=== PATIENT | female | born 1935 | race Caucasian/White ===

== ENCOUNTER 2016-12-02 10:34 | Observation (INO) | payer OTHER ==
[~2016-12-02] VITALS: Ht 162.6 cm; Wt 53.0 kg
[~2016-12-02 10:34] MED LIST: ALBU1AER9 INH; ASPI-435 PO; ATV5X PO; BIOT1CAP8 PO; CLX/20 PO; DOCU-94 PO; FEXO3TAB PO; FLNIN NAE; LSN25 PO; MONT1TAB3 PO; MULT-360 PO; OMEP20CA9 PO; OXGN; POLY335025 PO; PROBCAP PO; SALI1SPR3 INH; SIMV-150 PO; TIOTCAP INH; [UNRECOGNIZED DRUG - CODE] INH
[2016-12-02] MEDS ORDERED: FLUT1INH PO (11:07)
[2016-12-02] MEDS ORDERED: SPRIN/30 INH (11:08)
[2016-12-02] MEDS ORDERED: LEVO25TA5 PO (11:08)
[2016-12-02] MEDS ORDERED: SODIUM CHLORIDE 0.9% 1000ML 1,000 ML IV STA ×2 (11:11→18:26)
[2016-12-02] MEDS ORDERED: ONDANSETRON INJ 2 MG/ML 2 ML VIAL IV STA ×2 (11:11→12:23)
[2016-12-02] MEDS ORDERED: SIMV10TA2 PO (11:13)
[2016-12-02] MEDS ORDERED: ALBUT/IPRATROP 3MG/0.5MG NEB 3 ML VIAL INH ONE (11:15)
--- NOTE | 2016-12-02 11:24 | EMERGENCY ROOM VISIT NOTE ---
History Report prepared by Fabrice: Bob Franklin Under the Supervision of: Dr. Dilip Rinaldi M.D. First contact with patient: 11:08 Chief Complaint: DIZZY Stated Complaint: DIZZY History of Present Illness The patient is a 80 year old female who presents to the Emergency Room with complaints of constant dizziness starting this morning, and she states that she has been losing her balance. The patient additionally states that she is very nauseous, and the dizziness is worse while laying down. The patient denies any chest pain, vomiting, cough, congestion, fevers, or chills, though she states that she was sweating. The patient states that she has been laying in bed a lot recently, though yesterday she was somewhat active. The patient additionally notes that he has COPD, and she has had diverticulitis in the past. Source of History: patient Onset: this morning Position: other (global) Quality: other (dizziness) Timing: constant Modifying Factors (Worsening): other (laying down) Associated Symptoms: + nausea, No fevers, No chills, No cough, No chest pain , No vomiting Review of Systems See HPI for pertinent positives and negatives. A total of ten systems were reviewed and were otherwise negative. Past Medical & Surgical Medical Problems: (1) Calculus of kidney and ureter (2) Chronic obstructive lung disease (3) Diverticulitis (4) Laceration (5) Nasal bone fracture Social History Smoking Status: Current Every Day Smoker Alcohol Use: none Drug Use: none Marital Status: Housing Status: lives with significant other Current/Historical Medications Scheduled Aspirin (Aspirin 81), 1 TAB PO QAM Biotin (Biotin), 1 PO QAM Citalopram (Citalopram Hydrobromide), 20 MG PO QPM Docusate Sodium (Colace), 2 CAP PO HS Fexofenadine HCl (Mucinex Allergy), 1 TAB PO BID Fluticasone Furoate-Vilanterol (Breo Ellipta), 1 PUFF PO DAILY Home O2 Therapy (Oxygen), 2 LITERS NA HS Levothyroxine Sodium (Levothyroxine Sodium), 1 TAB PO DAILY Lisinopril (Lisinopril), 2.5 MG PO QAM Lorazepam (Lorazepam), 0.5 MG PO HS Multiple Minerals W/ Vitamins (Calcium Citrate +), 250 MG PO BID Polyethylene Glycol 3350 (Miralax), 1 DOSE PO DAILY Probiotic Product ([employer]), 1 CAPSULES PO QAM Simvastatin (Zocor), 1 TAB PO DAILY Tiotropium [place] (Spiriva Handihaler), 1 CAP INH DAILY Scheduled PRN Saline (Saline Nasal [place]), 2 SPRAYS INH Q4 PRN for to keep sinuses clear Allergies Coded Allergies: Sulfa Drugs (Verified Allergy, Mild, 12/02/16) Physical Exam Vital Signs Date Time Temp Pulse Resp B/P (MAP) Pulse Ox O2 Delivery O2 Flow Rate FiO2 12/02/16 18:39 59 22 104/63 96 Room Air 12/02/16 17:10 91 91 12/02/16 17:09 99/61 12/02/16 15:35 114/60 12/02/16 15:34 98 19 96 12/02/16 15:19 98 18 94 12/02/16 15:04 99 18 99 12/02/16 14:49 101 19 99 12/02/16 14:34 103 22 99 12/02/16 14:19 107 23 99 12/02/16 14:09 105 20 118/62 98 Nasal Cannula 2.0 12/02/16 14:05 118/62 12/02/16 14:04 106 25 98 12/02/16 14:03 98 Nasal Cannula 2.0 12/02/16 14:03 85 Nasal Cannula 12/02/16 13:34 100 26 100 12/02/16 13:29 98 12/02/16 13:19 88 18 100 12/02/16 13:04 82 18 100 12/02/16 12:49 75 19 100 12/02/16 12:39 141/83 12/02/16 12:39 71 22 141/83 100 Nebulizer 10.0 12/02/16 12:34 70 22 12/02/16 12:25 74 18 91 Room Air 12/02/16 12:19 72 20 12/02/16 12:04 75 23 12/02/16 11:47 94 Room Air 12/02/16 11:34 78 23 12/02/16 11:19 76 35 12/02/16 11:15 73 12/02/16 10:39 36.4 73 18 133/80 98 Room Air Physical Exam GENERAL: Awake, alert, cachectic-appearing, fatigued, in no distress HENT: Dy mucous membranes. Normocephalic, atraumatic. Oropharynx unremarkable. EYES: Normal conjunctiva. Sclera non-icteric. NECK: Supple. No nuchal rigidity. FROM. No JVD. RESPIRATORY: Diminished breath sounds throughout. CARDIAC: Regular rate, normal rhythm. Extremities warm and well perfused. Pulses equal. ABDOMEN: Soft, non-distended. No tenderness to palpation. No rebound or guarding. No masses. RECTAL: Deferred. MUSCULOSKELETAL: Chest examination reveals no tenderness. The back is symmetrical on inspection without obvious abnormality. There is no CVA tenderness to palpation. No joint edema. LOWER EXTREMITIES: Calves are equal size bilaterally and non-tender. No edema. No discoloration. NEURO: No nystagmus. Normal sensorium. No sensory or motor deficits noted. SKIN: No rash or jaundice noted. Medical Decision & Procedures ER Provider Diagnostic Interpretation: Radiology results as stated below per my review and radiologist interpretation: CT HEAD WITHOUT CONTRAST (CT) CLINICAL HISTORY: dizziness COMPARISON STUDY: 11/21/2014 TECHNIQUE: Axial CT of the brain is performed from the vertex to the skull base. IV contrast was not administered for this examination. A dose lowering technique was utilized adhering to the principles of ALARA. CT DOSE: 614.27 mGy.cm FINDINGS: No intra or extra-axial mass lesions are visualized. There is no CT evidence of acute cortical infarction. There is no evidence of midline shift. There is no acute hemorrhage. No calvarial fractures are visualized. There are patchy white matter hypodensities likely on a small vessel basis. There is no evidence of pathologic ventricular dilatation. There is no evidence of acute sinusitis IMPRESSION: No acute intracranial findings Electronically signed by: Nathan Barroso M.D. 12/02/2016 12:00 PM Dictated Date/Time: 12/02/2016 11:58 AM CHEST ONE VIEW PORTABLE CLINICAL HISTORY: Atypical chest pain COMPARISON STUDY: 09/26/2015 FINDINGS: The heart is normal in size. The patient remains hyperinflated. Underlying emphysema is suspected. There is minor blunting of the lateral costophrenic angles.[ There is no focal pulmonary consolidation IMPRESSION: Emphysema. No evidence of focal pulmonary consolidation Electronically signed by: Nathan Barroso M.D. 12/02/2016 11:49 AM Dictated Date/Time: 12/02/2016 11:49 AM BRAIN WITHOUT CONTRAST HISTORY: 80 years-old Female acute vertigo and dizziness with concern for acute stroke. COMPARISON: CT head of same day TECHNIQUE: Multiplanar multisequence MRI of the brain was obtained without contrast. FINDINGS: The large inrxh-df-nppl field clinical engineer images demonstrate no gross abnormality. There is no restricted diffusion to suggest acute infarction. The midline structures including the corpus callosum, brainstem, optic chiasm, pituitary and pineal gland are unremarkable. There is no cerebellar tonsillar herniation. 2 mm anterolisthesis of C2 on C3 is likely on a degenerative basis secondary to underlying severe facet arthropathy. There is facet bony fusion on the right at this level. Multilevel uncovertebral spurring and intervertebral disc space narrowing is present along with facet arthrosis. There is moderate cerebral atrophy with ex vacuo ventriculomegaly. Moderate to extensive degree of patchy and confluent T2 prolongation involves the subcortical, deep and periventricular white matter of the cerebral hemispheres bilaterally compatible with chronic microvascular ischemic changes. No acute intracranial hemorrhage, midline shift, intracranial mass or abnormal extra-axial collections. Major flow voids at the level of the skull base appear patent. Orbits are symmetric. Mastoid air cells are clear. There is minimal ethmoid sinus disease. IMPRESSION: 1. No acute intracranial abnormality. Negative for hemorrhage or acute infarction. 2. Background atrophy with moderate to extensive chronic microvascular ischemic changes. The above report was generated using voice recognition software. It may contain grammatical, syntax or spelling errors. Electronically signed by: Giovanni Dumont M.D. 12/02/2016 4:42 PM Dictated Date/Time: 12/02/2016 4:38 PM Laboratory Results 12/02/16 11:26 Red Blood Count 4.99, Mean Corpuscular Volume 93.4, Mean Corpuscular Hemoglobin 29.3, Mean Corpuscular Hemoglobin Concent 31.3, Mean Platelet Volume 9.9, Neutrophils (%) (Auto) 83.0, Lymphocytes (%) (Auto) 10.8, Monocytes (%) (Auto) 4.3, Eosinophils (%) (Auto) 1.1, Basophils (%) (Auto) 0.6, Neutrophils # (Auto) 5.23, Lymphocytes # (Auto) 0.68, Monocytes # (Auto) 0.27, Eosinophils # (Auto) 0.07, Basophils # (Auto) 0.04 12/02/16 11:26 Test 8/31/17 11:26 12/02/16 11:32 12/02/16 14:00 White Blood Count 6.30 K/uL (4.8-10.8) Red Blood Count 4.99 M/uL (4.2-5.4) Hemoglobin 14.6 g/dL (12.0-16.0) Hematocrit 46.6 % (37-47) Mean Corpuscular Volume 93.4 fL (80-100) Mean Corpuscular Hemoglobin 29.3 pg (25-34) Mean Corpuscular Hemoglobin Concent 31.3 g/dl (32-36) Platelet Count 153 K/uL (130-400) Mean Platelet Volume 9.9 fL (7.4-10.4) Neutrophils (%) (Auto) 83.0 % Lymphocytes (%) (Auto) 10.8 % Monocytes (%) (Auto) 4.3 % Eosinophils (%) (Auto) 1.1 % Basophils (%) (Auto) 0.6 % Neutrophils # (Auto) 5.23 K/uL (1.4-6.5) Lymphocytes # (Auto) 0.68 K/uL (1.2-3.4) Monocytes # (Auto) 0.27 K/uL (0.11-0.59) Eosinophils # (Auto) 0.07 K/uL (0-0.5) Basophils # (Auto) 0.04 K/uL (0-0.2) RDW Standard Deviation 48.1 fL (36.4-46.3) RDW Coefficient of Variation 14.1 % (11.5-14.5) Immature Granulocyte % (Auto) 0.2 % Immature Granulocyte # (Auto) 0.01 K/uL (0.00-0.02) Anion Gap 6.0 mmol/L (3-11) Estimated GFR () 75.0 Estimated GFR (Non- 64.7 BUN/Creatinine Ratio 13.5 (10-20) Calcium Level 8.7 mg/dl (8.5-10.1) Total Bilirubin 1.0 mg/dl (0.2-1) Direct Bilirubin 0.2 mg/dl (0-0.2) Aspartate Amino Transf (AST/SGOT) 10 U/L (15-37) Alanine Aminotransferase (ALT/SGPT) 12 U/L (12-78) Alkaline Phosphatase 61 U/L (45-117) Troponin I < 0.015 ng/ml (0-0.045) Total Protein 6.4 gm/dl (6.4-8.2) Albumin 3.5 gm/dl (3.4-5.0) Lipase 99 U/L (73-393) Venous Blood pH 7.40 (7.36-7.41) Venous Blood Partial Pressure CO2 45 mmHg (38.0-50.0) Venous Blood Partial Pressure O2 42 mmHg Venous Blood HCO3 27 mmol/L Venous Blood Oxygen Saturation 77.0 % Venous Blood Base Excess 2.0 mEq/L Urine Color YELLOW Urine Appearance CLEAR (CLEAR) Urine pH 7.0 (4.5-7.5) Urine Specific [place] 1.015 (1.000-1.030) Urine Protein NEG (NEG) Urine Glucose (UA) NEG (NEG) Urine Ketones TRACE (NEG) Urine Occult Blood NEG (NEG) Urine Nitrite NEG (NEG) Urine Bilirubin NEG (NEG) Urine Urobilinogen NEG (NEG) Urine Leukocyte Esterase NEG (NEG) Laboratory results reviewed by me Medications Administered Medications (Trade) Dose Ordered Sig/Codey Route Start Time Stop Time Status Last Admin Dose Admin Ondansetron HCl (Zofran Inj) 4 mg NOW STAT IV 12/02/16 11:11 12/02/16 11:18 DC 12/02/16 11:45 4 MG Sodium Chloride 1,000 ml @ 999 mls/hr Q1H1M STAT IV 12/02/16 11:11 12/02/16 12:11 DC 12/02/16 11:44 999 MLS/HR Albuterol/ Ipratropium (Duoneb) 12 ml ONE ONCE INH 12/02/16 11:15 12/02/16 11:18 DC 12/02/16 12:21 12 ML Ondansetron HCl (Zofran Inj) 4 mg NOW STAT IV 12/02/16 12:23 12/02/16 12:26 DC 12/02/16 12:50 4 MG Metoclopramide HCl (Reglan Inj) 10 mg NOW STAT IV 12/02/16 13:41 12/02/16 13:42 DC 12/02/16 14:07 10 MG Diphenhydramine HCl (Benadryl Inj) 25 mg NOW STAT IV 12/02/16 13:41 12/02/16 13:42 DC 12/02/16 14:07 25 MG Famotidine (Pepcid 20mg/100 ml) 20 mg ONE STAT IV 12/02/16 13:42 12/02/16 13:43 DC 12/02/16 14:08 20 MG Meclizine HCl (Antivert Tab) 25 mg NOW STAT PO 12/02/16 18:26 12/02/16 18:30 DC 12/02/16 18:39 25 MG Sodium Chloride 1,000 ml @ 999 mls/hr Q1H1M STAT IV 12/02/16 18:26 12/02/16 19:26 12/02/16 18:38 999 MLS/HR ECG Indication: other (dizziness) Rate (beats per minute): 71 Rhythm: normal sinus Findings: no acute ischemic change, other (Normal axis) ED Course 1108: The patient was evaluated in room C9. A complete history and physical exam was performed. 1111: Sodium Chloride 1000 ml @ 999 mls/hr IV, Zofran Inj 4mg IV 1115: DuoNeb 12ml INH 1223: Zofran Inj 4mg IV 1332: I reevaluated the patient, and she was feeling well. 1341: Benadryl Inj 25mg IV, Reglan Inj 10mg IV 1342: Pepcid 20mg/100ml 20mg IV 1649: I reevaluated the patient, and she states that she is feeling a little better, and she wants to try to eat. She still feels like she can't walk 1801: The patient is eating, and she is tolerating it well. 1840: I discussed the patient's case with DENITA Gallegos, and she is going to evaluate the patient for further treatment. Medical Decision I reviewed the patient's past medical history, medications, and the nursing notes as described above. The patient's presentation and history were concerning for peripheral vertigo vs. central vertigo vs. pneumonia, COPD exacerbation, bronchitis, dehydration, electrolyte abnormality, and UTI. Patient is an 80-year-old woman with a past medical history of eye protection and COPD presents emergency Department with vague complaints of fatigue, difficulty with balance but not dizzy, and nausea per history of present illness. On exam patient is in no acute distress, afebrile, stable vital signs. Appears clinically dry. On exam the patient has no nystagmus and is neurologically intact with normal finger to nose. However, when the patient is sat up the patient reports an unsteadiness. EKG unremarkable. Troponin negative in the setting of greater than 6 hours of constant symptoms. Chest x- ray negative. Labs including LFTs unremarkable and abdominal exam is benign. UA negative. Patient given IV fluids and Zofran with some improvement in her symptoms however still reporting unsteadiness. Suturing this MRI of the brain was done to rule out central etiology which was negative for stroke. Patient given additional IV fluids Reglan, Benadryl resolution of her nausea and able tolerate by mouth without difficulty. However when attempted to ambulate patient still reporting difficulty requiring one assist. This patient will be admitted for additional IV fluids, monitoring for her ataxia, and likely PT eval if not improved. Case was discussed with the medicine team will admit the patient to medicine service. Medication Reconcilliation Current Medication List: was personally reviewed by me Blood Pressure Screening Patient's blood pressure: Normal blood pressure Consults Time Called: 1827 Consulting Physician: DENITA Gallegos Returned Call: [phone] I discussed the patient's case with DENITA Gallegos, and she is going to evaluate the patient for further treatment. Impression Primary Impression: Dehydration Additional Impressions: Dizziness Ataxia Scribe Attestation The scribe's documentation has been prepared under my direction and personally reviewed by me in its entirety. I confirm that the note above accurately reflects all work, treatment, procedures, and medical decision making performed by me. Departure Information Dispostion Being Evaluated By Hospitalist Dakota Galindo M.D. (PCP) Patient Instructions My [facility] Problem Qualifiers
[2016-12-02 11:51] LABS: BASO % 0.6 %; BASO ABS # 0.04 K/uL (0-0.2); COMPLETE YES; EOS % 1.1 %; HEMATOCRIT 46.6 % (37-47); IG% 0.2 %; LYMPH % 10.8 %; LYMPH ABS # 0.68 K/uL (1.2-3.4); MEAN CELL VOLUME 93.4 fL (80-100); MEAN CORPUSCULAR HEMOGLOBIN 29.3 pg (25-34); MEAN CORPUSCULAR HGB CONC 31.3 g/dl (32-36); MEAN PLATELET VOLUME 9.9 fL (7.4-10.4); MONO % 4.3 %; PLATELET COUNT 153 K/uL (130-400); RED BLOOD COUNT 4.99 M/uL (4.2-5.4)
--- NOTE | 2016-12-02 11:51 | DIAGNOSTIC IMAGING REPORT ---
CHEST ONE VIEW PORTABLE CLINICAL HISTORY: Atypical chest pain COMPARISON STUDY: 09/26/2015 FINDINGS: The heart is normal in size. The patient remains hyperinflated. Underlying emphysema is suspected. There is minor blunting of the lateral costophrenic angles.[ There is no focal pulmonary consolidation IMPRESSION: Emphysema. No evidence of focal pulmonary consolidation Electronically signed by: Nathan Barroso M.D. 12/02/2016 11:49 AM Dictated Date/Time: 12/02/2016 11:49 AM
--- NOTE | 2016-12-02 12:01 | DIAGNOSTIC IMAGING REPORT ---
CT HEAD WITHOUT CONTRAST (CT) CLINICAL HISTORY: dizziness COMPARISON STUDY: 11/21/2014 TECHNIQUE: Axial CT of the brain is performed from the vertex to the skull base. IV contrast was not administered for this examination. A dose lowering technique was utilized adhering to the principles of ALARA. CT DOSE: 614.27 mGy.cm FINDINGS: No intra or extra-axial mass lesions are visualized. There is no CT evidence of acute cortical infarction. There is no evidence of midline shift. There is no acute hemorrhage. No calvarial fractures are visualized. There are patchy white matter hypodensities likely on a small vessel basis. There is no evidence of pathologic ventricular dilatation. There is no evidence of acute sinusitis IMPRESSION: No acute intracranial findings Electronically signed by: Nathan Barroso M.D. 12/02/2016 12:00 PM Dictated Date/Time: 12/02/2016 11:58 AM
[2016-12-02 12:16] LABS: ALT/SGPT 12 U/L (12-78); AST/SGOT 10 U/L (15-37); BLOOD UREA NITROGEN 11 mg/dl (7-18); BUN/CREATININE RATIO 13.5 (10-20); CALCIUM 8.7 mg/dl (8.5-10.1); CARBON DIOXIDE 28 mmol/L (21-32); CHLORIDE 103 mmol/L (98-107); CREATININE 0.85 mg/dl (0.60-1.20); GLUCOSE 100 mg/dl (70-99); POTASSIUM 4.1 mmol/L (3.5-5.1); SODIUM 137 mmol/L (136-145)
[2016-12-02 12:21] LABS: ALKALINE PHOSPHATASE 61 U/L (45-117)
[2016-12-02 12:25] VITALS: PULSE 74; O2SAT 91
[2016-12-02] MEDS ORDERED: DiphenhydrAMINE HCL 50 MG/ML VIAL IV STA (13:41)
[2016-12-02] MEDS ORDERED: METOCLOPRAMIDE HCL INJ 5 MG/ML 2 ML VIAL IV STA (13:41)
[2016-12-02] MEDS ORDERED: FAMOTIDINE 20MG/102 ML D5W IV STA (13:42)
[2016-12-02 14:21] LABS: URINE APPEARANCE CLEAR (CLEAR); URINE BILIRUBIN NEG (NEG); URINE COLOR YELLOW; URINE NITRITE NEG (NEG); URINE SPECIFIC GRAVITY 1.015 (1.000-1.030); UROBILINOGEN NEG (NEG); ZZUR CULT IF INDIC CLEAN CATCH NO
[2016-12-02 14:25] LABS: MANUAL MICROSCOPIC REQUIRED? NO; REVIEW REQ? NO
--- NOTE | 2016-12-02 16:44 | DIAGNOSTIC IMAGING REPORT ---
BRAIN WITHOUT CONTRAST HISTORY: 80 years-old Female acute vertigo and dizziness with concern for acute stroke. COMPARISON: CT head of same day TECHNIQUE: Multiplanar multisequence MRI of the brain was obtained without contrast. FINDINGS: The large oafcy-za-cnag trucksmith images demonstrate no gross abnormality. There is no restricted diffusion to suggest acute infarction. The midline structures including the corpus callosum, brainstem, optic chiasm, pituitary and pineal gland are unremarkable. There is no cerebellar tonsillar herniation. 2 mm anterolisthesis of C2 on C3 is likely on a degenerative basis secondary to underlying severe facet arthropathy. There is facet bony fusion on the right at this level. Multilevel uncovertebral spurring and intervertebral disc space narrowing is present along with facet arthrosis. There is moderate cerebral atrophy with ex vacuo ventriculomegaly. Moderate to extensive degree of patchy and confluent T2 prolongation involves the subcortical, deep and periventricular white matter of the cerebral hemispheres bilaterally compatible with chronic microvascular ischemic changes. No acute intracranial hemorrhage, midline shift, intracranial mass or abnormal extra-axial collections. Major flow voids at the level of the skull base appear patent. Orbits are symmetric. Mastoid air cells are clear. There is minimal ethmoid sinus disease. IMPRESSION: 1. No acute intracranial abnormality. Negative for hemorrhage or acute infarction. 2. Background atrophy with moderate to extensive chronic microvascular ischemic changes. The above report was generated using voice recognition software. It may contain grammatical, syntax or spelling errors. Electronically signed by: Giovanni Dumont M.D. 12/02/2016 4:42 PM Dictated Date/Time: 12/02/2016 4:38 PM
[2016-12-02] MEDS ORDERED: MECLIZINE HCL 25 MG TAB PO STA (18:26)
[2016-12-02 19:18] LABS: PHOSPHORUS 3.3 mg/dl (2.5-4.9)
[2016-12-02] MEDS ORDERED: MECLIZINE HCL 12.5 MG TAB PO PRN (20:45)
[2016-12-02] MEDS ORDERED: TRAMADOL HCL 50 MG TAB PO PRN (20:45)
[2016-12-02] MEDS ORDERED: SODIUM CHLORIDE 0.9% 1000ML 1,000 ML IV ONE (20:45)
[2016-12-02] MEDS ORDERED: ONDANSETRON INJ 2 MG/ML 2 ML VIAL IV PRN (20:45)
[2016-12-02] MEDS ORDERED: ACETAMINOPHEN 325 MG TAB PO PRN (20:45)
[2016-12-02 20:58] VITALS: Ht 162.6 cm; Wt 53.0 kg
[2016-12-02] MEDS ORDERED: PATIENT'S HEIGHT AND/OR WEIGHT NEEDED SCH (21:00)
[2016-12-02] MEDS ORDERED: IV FLUIDS COMPLETED PRN (21:00)
[2016-12-02] MEDS: DOCUSATE SODIUM 100 MG CAP PO SCH ×2 (22:00→22:04)
[2016-12-02] MEDS: FEXOFENADINE HCL 180 MG TAB PO SCH (22:05)
[2016-12-02] MEDS: CITALOPRAM 20 MG TAB PO SCH (22:05)
[2016-12-02] MEDS: CEROVITE ADV FORMULA TAB PO SCH (22:06)
[2016-12-02] MEDS: ENOXAPARIN 30 MG/0.3 ML SYR SQ SCH (22:06)
[2016-12-02 23:09] VITALS: BP 102/62; PULSE 74; TEMP 36.8; O2SAT 99
[2016-12-03] VITALS (7 sets, daily range): BP systolic 123–150; BP diastolic 74–87; PULSE 67–70; TEMP 36.6–36.8; O2SAT 93–100
[2016-12-03] MEDS: LORAZEPAM 0.5 MG TAB PO PRN ×2 (00:19→22:09)
--- NOTE | 2016-12-03 04:06 | HISTORY & PHYSICAL EXAMINATION ---
DATE OF ADMISSION: 12/02/2016 PRIMARY CARE PHYSICIAN: Dr. Deleon. CHIEF COMPLAINT: Dizziness. HISTORY OF PRESENT ILLNESS: History obtained from the patient, records, daughter. Medical history significant for chronic respiratory failure 2 to secondary to COPD on home O2, ongoing tobacco abuse, hypertension, hyperlipidemia, hypothyroidism. 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 Over the last few months, the patient has not been well, nonspecific symptoms, not feeling as per outpatient records, a lot of stress , but her moods are stable. Family does not think she is depressed; patient thinks she may be. Over the last 2 months, worsening of symptoms. Poor appetite as per family. Patient frustrated that she is "not able to do as much as she is able to do in the past". Denies exertional shortness of breath. She saw her PCP last month. Lyme screen, Vitamin D, ESR, HEATHER were all normal. This morning, patient woke up with dizziness described as lightheadedness, however, worse with head motion. No chest pain, no shortness of breath. Brought to the Emergency Room. Workup unremarkable. Upon standing up, patient had trouble walking - "walking like a drunk". MEDICAL HISTORY: As above. SURGICAL HISTORY: D&C, oophorectomy, cataract surgery. HOME MEDICATIONS: Include aspirin, Biotin, citalopram, docusate sodium, Evista, Mucinex, oxygen, levothyroxine, lisinopril, Lorazepam, MiraLax, Zocor, Spiriva. ALLERGIES: SULFA. FAMILY HISTORY: Hypertension, dementia and prostate cancer. PERSONAL AND SOCIAL HISTORY: A few cigarettes or more depending on how stressed she is. Denies alcoholic beverage intake. 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 Cares for her with dementia. REVIEW OF SYSTEMS: As per HPI, all other ROS negative. PHYSICAL EXAMINATION: VITAL SIGNS: Blood pressure was noted to be 104/60, pulse rate 85, RR 20, temperature 36.4, sats 92 on room air. GENERAL: Noted to be anxious, in no respiratory distress. SKIN: Normal color. HEENT: [place] palpebral conjunctivae. Dry mucosa. Nasal cannula in place. NECK: No JVD, supple. CHEST: Clear to auscultation. HEART: Regular rate and rhythm ABDOMEN: Soft. EXTREMITIES: No edema, no tenderness. NEUROLOGIC: No gross focality. Gait and stance not assessed. Note of some rest/intention tremors. LABORATORY DATA: Hemoglobin was noted to be 14.6, hematocrit 46.6, white count 6.3, platelets 153. Sodium 137, potassium 4, chloride 103, CO2 of 28, BUN 11, creatinine 0.8, glucose of 100. UA, trace ketones. Brain MRI showed no acute intracranial abnormality, no stroke. Moderate extensive chronic microvascular ischemic changes. ASSESSMENT: 1. Vertigo symptoms Normal MRI brain 2. Concomitant gait ataxia 3. mild dehydration, ketonuria 4. hypertension stable 5. chronic respiratory failure 2 to COPD on home O2, pulmonary status at baseline. 6. Ongoing tobacco abuse 7. Multiple somatic complaints, decreasing functionality over the last few months Outpatient workup unremarkable. possible depression PLAN: OBS GMF Symptomatic management for vertigo. Neurology consult RE ataxia. (Px known to Dr. Hernandez.) IV fluids. PT, OT eval. Psychiatry evaluation for possible depression if patient amenable. Patient counseled to stop smoking. DVT prophylaxis, Lovenox subQ. DNR. Patient daughter's requesting for updates from providers. (Scarlett gonzalez [phone], Carleen [phone].) [facility]
[2016-12-03] MEDS: LEVOTHYROXINE 25 MCG TAB PO SCH (05:25)
[2016-12-03 06:39] LABS: BASO % 0.4 %; BASO ABS # 0.02 K/uL (0-0.2); COMPLETE YES; EOS % 2.4 %; HEMATOCRIT 39.2 % (37-47); IG% 0.2 %; LYMPH % 22.6 %; LYMPH ABS # 1.05 K/uL (1.2-3.4); MEAN CELL VOLUME 94.7 fL (80-100); MEAN CORPUSCULAR HGB CONC 30.6 g/dl (32-36); MEAN PLATELET VOLUME 9.9 fL (7.4-10.4); MONO % 6.9 %; NEUT % 67.5 %; PLATELET COUNT 128 K/uL (130-400); RED BLOOD COUNT 4.14 M/uL (4.2-5.4); WHITE BLOOD COUNT 4.65 K/uL (4.8-10.8)
[2016-12-03 06:55] LABS: PROTHROMBIN TIME (PATIENT) 10.6 SECONDS (9.0-12.0)
[2016-12-03] MEDS: ASPIRIN 81 MG ECTAB PO SCH (09:20)
[2016-12-03] MEDS: SIMVASTATIN 10 MG TAB PO SCH (09:20)
[2016-12-03] MEDS: LISINOPRIL 2.5 MG TAB PO SCH (09:20)
[2016-12-03] MEDS: POLYETHYLENE (MIRALAX) 17 GM PACK PO SCH (09:20)
[2016-12-03] MEDS: LACTOBACILLUS ACIDOPHILUS (FLORANEX) TAB PO SCH (09:21)
[2016-12-03] MEDS: TIOTROPIUM BROMIDE 5 PUFF/90 MCG INH INH SCH (09:21)
[2016-12-03] MEDS: CEROVITE ADV FORMULA TAB PO SCH ×2 (09:22→21:17)
[2016-12-03] MEDS: BREO ELLIPTA - ORDER AWAITING ACTION SCH ×4 (09:22→22:10)
[2016-12-03] MEDS: FEXOFENADINE HCL 180 MG TAB PO SCH ×2 (09:22→21:17)
--- NOTE | 2016-12-03 15:59 | NEUROLOGY CONSULTATION ---
DATE OF CONSULTATION: 12/03/2016 DATE OF CONSULTATION: 12/03/2016 REQUESTED BY: Dr. Harry. HISTORY OF PRESENT ILLNESS: Wendy is 80-year-old, patient of Dr. Dakota Deleon. 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 The question at that point was whether or not she had a cervical myelopathy and upon review of her MRI scans, etc. I did not feel this was the case and I really did see her back in followup. At that point; however, she had an MRI of her brain which showed a lot confluent high T2 intensity signals consistent with some microvascular disease, but at that point it was not associated with any significant gait disturbance. She does have a significant history of chronic respiratory distress due to COPD and is on home O2 at night, she continues to smoke. 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 She has had nonspecific set of symptoms over the past several months with some stress issues, fatigue, lassitude although she denies being depressed. Things have gradually been going downhill and there is some associated shortness of breath in all of this. She has been evaluated extensively as an outpatient for Lyme disease, vitamin D levels were normal. Her laboratory studies including a sed rate and HEATHER were normal but yesterday morning she awakened with vertigo and a tendency to stagger from side to side. She thinks this was worse with head motion. There were no other symptoms, no numbness or tingling of her face. There was no numbness in the extremities. There was no hearing loss or tinnitus. She did not have any visual issues including oscillopsia, she was brought to the Emergency Room. A workup was unremarkable, but she had a little trouble walking and it was felt that she was "walking like a drunk". PAST SURGICAL HISTORY: Reveals a D&C, oophorectomy, cataract surgery. MEDICAL HISTORY: As noted above. HOME MEDICATIONS: Include aspirin, biotin, citalopram, docusate, avista, Mucinex, oxygen, levothyroxine, lisinopril, lorazepam, MiraLax, Zocor, Spiriva, and she claims to have had no changes in these medications and to be quite compliant with their dosing. ALLERGIES: SHE HAS ALLERGIES TO SULFA. FAMILY HISTORY: Positive for hypertension, dementia and prostate cancer in various relatives. SOCIAL HISTORY: Reveals her to be continued cigarette smoker although down to a few cigarettes a day. She denies any alcohol intake. She cares for her with dementia and I am sure this is a significant stressor. REVIEW OF SYSTEMS: With the exception of a generalized malaise and fatigue described above which has resulted in an extensive but negative outpatient workup, there have been no real other systemic complaints, no fevers, sweats or chills. No new issues referable to head, eyes, ears, nose and throat other than now dysequilibrium/vertigo. She has had no new pulmonary problems other than her chronic oxygen requirements to COPD and has been no cardiovascular issues. No gastrointestinal, genitourinary or musculoskeletal issues and neurologically again she has had some lassitude, fatigability and now the episode of disequilibrium and vertigo which today is significantly better than it was yesterday. PHYSICAL EXAMINATION: VITAL SIGNS: Her blood pressure was noted to be 104/60, pulse was 85, respirations were 20. GENERAL: She was thin, appeared to be a little anxious but was in no obvious other distress. HEAD, EYES, EARS, NOSE, AND THROAT: Examination was unremarkable. LUNGS: Clear. HEART: Had a regular rhythm. No murmurs were appreciated. ABDOMEN: Soft and nontender. EXTREMITIES: Free of edema, had good pulses. NEUROLOGIC: Today neurologically she is awake, alert, oriented in 3 spheres. She has normal extraocular movements, normal visual meyer, normal pupils, normal facial motility and strength. Normal facial sensation. Speech is clear. Tongue protrudes in the midline. There is no nuchal rigidity. She has no cerebellar dysmetria on [id number] and point to point testing. She can sit up, get up into a standing position with a little sensation of being off balance but there is no real induction of vertigo with appropriate head maneuvers, modified Hallpike maneuvers, etc. I do not see any nystagmus in any of these attempts to evoke vertigo. She can walk with a narrow based gait, only mildly unsteady. I would not describe this as ataxic at all. She has good facility of rapid repetitive motions. Reflexes are 1+ and symmetrical. Toes are downgoing. No Margaret's signs are seen. Muscle strength testing is normal and sensation despite her age is remarkably intact to vibration, light touch and temperature. I reviewed the MRI scan. 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 It is quite appropriate I think in degree for someone with her vascular risk factors and underlying oxygenation issues. There is certainly nothing that would explain her current issues and it is remarkable how little gait apraxia has as she has on exam today compared to the degree of leukoencephalopathy. At this point, I am not sure what is going on. She could have had some true transient vertigo. She might have some orthostatic issues. I do not see any evidence for acute stroke. I would check her orthostatics, have physical therapy evaluate her and make sure she is stable and if they feel she could go home I would have no problems discharging her within the next day or two. If they feel that she does needs a little more time, perhaps evaluation at [facility] might be worthy of consideration. I will check back with her tomorrow. Her medications have really not changed. I do not see any Antivert been added here nor do I think it is necessary at this point as she really does not describe any true vertigo. I will check with her tomorrow. MARLEN
--- NOTE | 2016-12-03 19:15 | Progress Note ---
Medicine Progress Note Date & Time of Visit: Dec 03, 2016 at 14:02. Subjective Pt was seen and examined Sitting in chair very comfortable with family member presents Pt said that the dizzy is slightly improved denies any weakness, palpitation, chest pain Objective Last 8 Hrs Date Time Temp Pulse Resp B/P (MAP) Pulse Ox O2 Delivery O2 Flow Rate FiO2 12/03/16 15:25 36.6 70 18 123/74 (90) 100 2.0 12/03/16 11:25 93 Physical Exam: General- no acute distress Head- atraumatic Eyes- PERRL, EOMI ENT- oropharynx clear Neck- supple, no JVD Lungs- clear to auscultation Heart- regular rhythm Abdomen- normal bowel sounds, soft, nontender Extremities- no calf tenderness Neuro- alert, oriented x 3; PERRL, EOMI; no facial palsy Skin- warm & dry Laboratory Results: Last 24 Hours Test 12/03/16 06:06 White Blood Count 4.65 K/uL Red Blood Count 4.14 M/uL Hemoglobin 12.0 g/dL Hematocrit 39.2 % Mean Corpuscular Volume 94.7 fL Mean Corpuscular Hemoglobin 29.0 pg Mean Corpuscular Hemoglobin Concent 30.6 g/dl Platelet Count 128 K/uL Mean Platelet Volume 9.9 fL Neutrophils (%) (Auto) 67.5 % Lymphocytes (%) (Auto) 22.6 % Monocytes (%) (Auto) 6.9 % Eosinophils (%) (Auto) 2.4 % Basophils (%) (Auto) 0.4 % Neutrophils # (Auto) 3.14 K/uL Lymphocytes # (Auto) 1.05 K/uL Monocytes # (Auto) 0.32 K/uL Eosinophils # (Auto) 0.11 K/uL Basophils # (Auto) 0.02 K/uL RDW Standard Deviation 48.9 fL RDW Coefficient of Variation 14.1 % Immature Granulocyte % (Auto) 0.2 % Immature Granulocyte # (Auto) 0.01 K/uL Prothrombin Time 10.6 SECONDS Prothromb Time International Ratio 1.0 Activated Partial Thromboplast Time 26.6 SECONDS Partial Thromboplastin Ratio 1.0 Vitamin B12 Level 173 pg/mL Assessment & Plan Dizziness Possible related to orthostatic vs positional vertigo vs dehydration Orthostatic BP noted during PT No focal neuro deficit CT and MRI of the brain are negative Continue meclizine will get a carotid doppler Neuro consulted Low Vit B12 B12 level 173 Starting on B12 supplement Hypertension Continue lisinopril 2.5 mg stable COPD Continue home oxygen with ambulation Hypothyroidism TSH WNL Continue levothyroxine Tobacco abuse Counseling on smoking cessation DVT Px on lovenox subq CODE STATUS FULL CODE Disposition Follow up with your PCP Dr. Rowell on 12/08 @ 11:45 AM Will discharge tomorrow Consultants: Neurology Current Inpatient Medications: Current Inpatient Medications Medications (Trade) Dose Ordered Sig/Codey Route Start Time Stop Time Status Last Admin Dose Admin Enoxaparin Sodium (Lovenox Inj) 30 mg Q24H SQ 12/02/16 22:00 01/01/17 21:59 12/02/16 22:06 30 MG Acetaminophen (Tylenol Tab) 650 mg Q4H PRN PO 12/02/16 20:45 01/01/17 20:44 Ondansetron HCl (Zofran Inj) 4 mg Q6H PRN IV 12/02/16 20:45 01/01/17 20:44 Tramadol HCl (Ultram Tab) 25 mg Q6H PRN PO 12/02/16 20:45 01/01/17 20:44 Aspirin (Ecotrin Tab) 81 mg QAM PO 12/03/16 08:00 01/02/17 08:59 12/03/16 09:20 81 MG Citalopram Hydrobromide (celeXA TAB) 20 mg QPM PO 12/02/16 21:00 01/01/17 20:59 12/02/16 22:05 20 MG Docusate Sodium (coLACE CAP) 200 mg HS PO 12/02/16 21:00 01/01/17 20:59 12/02/16 22:04 200 MG Fexofenadine HCl (Sarai Tab) 180 mg BID PO 12/02/16 21:00 01/01/17 20:59 12/03/16 09:22 180 MG Levothyroxine Sodium (Synthroid Tab) 25 mcg DAILYBB PO 12/03/16 06:30 01/02/17 06:59 12/03/16 05:25 25 MCG Lisinopril (Zestril Tab) 2.5 mg QAM PO 12/03/16 08:00 01/02/17 08:59 12/03/16 09:20 2.5 MG Lorazepam (Ativan Tab) 0.5 mg HS PRN PO 12/02/16 20:45 01/01/17 20:44 12/03/16 00:19 0.5 MG Polyethylene (Miralax Powder Packet) 17 gm DAILY PO 12/03/16 08:00 01/02/17 08:59 12/03/16 09:20 17 GM Simvastatin (Zocor Tab) 10 mg DAILY PO 12/03/16 08:00 01/02/17 08:59 12/03/16 09:20 10 MG Tiotropium [place] (Spiriva Handihaler Inhaler) 1 puff DAILY INH 12/03/16 08:00 01/02/17 08:59 12/03/16 09:21 1 PUFF Miscellaneous Information (Order Awaiting Action) 1 ea QS N/A 12/03/16 00:00 01/02/17 00:00 Multivitamins/ Minerals (Multivitamin W/ Minerals Tab) 1 tab BID PO 12/02/16 21:00 01/01/17 20:59 12/03/16 09:22 1 TAB Lactobacillus Acidophilus (Floranex Tab) 1 tab DAILY PO 12/03/16 08:00 01/02/17 08:59 12/03/16 09:21 1 TAB Meclizine HCl (Antivert Tab) 12.5 mg Q6H PRN PO 12/02/16 20:45 01/01/17 20:44 Miscellaneous (Iv Fluids Completed) 1 ea PRN PRN N/A 12/02/16 21:00 12/02/17 20:59 Cyanocobalamin (Vitamin B-12 Tab) 1,000 mcg QAM PO 12/04/16 08:00 01/03/17 07:59
--- NOTE | 2016-12-03 20:09 | DIAGNOSTIC IMAGING REPORT ---
BILATERAL CAROTID DOPPLER STUDY HISTORY: Dizziness COMPARISON: None. TECHNIQUE: Real-time, grayscale, and color Doppler sonography of the carotid arteries was performed. Imaging reviewed in the transverse and longitudinal planes. All measurements were calculated based on NASCET criteria. FINDINGS: Antegrade flow is seen in the bilateral vertebral arteries. Mild calcified plaque seen within the bilateral carotid bifurcations. The peak systolic velocity within the right ICA is 72 cm/s. The right systolic ratio is 1.4. The peak systolic velocity within the left ICA is 65 cm/s. The left systolic ratio is 1.1. IMPRESSION: No hemodynamically significant stenosis seen within the carotid arteries. Electronically signed by: Edgar Saez M.D. 12/03/2016 8:07 PM Dictated Date/Time: 12/03/2016 8:06 PM
[2016-12-03] MEDS: ENOXAPARIN 30 MG/0.3 ML SYR SQ SCH (21:16)
[2016-12-03] MEDS: DOCUSATE SODIUM 100 MG CAP PO SCH (21:17)
[2016-12-03] MEDS: CITALOPRAM 20 MG TAB PO SCH (21:17)
[2016-12-04] VITALS: O2SAT 96
[2016-12-04] MEDS: LEVOTHYROXINE 25 MCG TAB PO SCH (06:06)
[2016-12-04] MEDS ORDERED: CYANOCOBALAMIN 500 MCG TAB (VIT B-12) PO SCH (08:00)
[2016-12-04] MEDS: LACTOBACILLUS ACIDOPHILUS (FLORANEX) TAB PO SCH (08:00)
[2016-12-04 08:06] VITALS: BP 144/87; PULSE 69; TEMP 36.5; O2SAT 98
[2016-12-04] MEDS: TIOTROPIUM BROMIDE 5 PUFF/90 MCG INH INH SCH (08:49)
[2016-12-04] MEDS: BREO ELLIPTA - ORDER AWAITING ACTION SCH (08:50)
[2016-12-04] MEDS: FEXOFENADINE HCL 180 MG TAB PO SCH (08:51)
[2016-12-04] MEDS: POLYETHYLENE (MIRALAX) 17 GM PACK PO SCH (08:51)
[2016-12-04] MEDS: CEROVITE ADV FORMULA TAB PO SCH (08:51)
[2016-12-04] MEDS: LISINOPRIL 2.5 MG TAB PO SCH (08:51)
[2016-12-04] MEDS: SIMVASTATIN 10 MG TAB PO SCH (08:52)
[2016-12-04] MEDS: ASPIRIN 81 MG ECTAB PO SCH (08:52)
--- NOTE | 2016-12-04 13:03 | Progress Note ---
Medicine Progress Note Date & Time of Visit: Dec 04, 2016 at 12:50. Subjective Pt was seen and examined Sitting in bed comfortable eating lunch and watching the [place] game Pt said that she feels fine She said that she does not have any dizziness today She will be happy to go home today denies any chest pain, palpitation, dizziness and SOB Objective Last 8 Hrs Date Time Temp Pulse Resp B/P (MAP) Pulse Ox O2 Delivery O2 Flow Rate FiO2 12/04/16 08:06 36.5 69 18 144/87 (106) 98 Nasal Cannula 2.0 12/04/16 08:00 Room Air Physical Exam: General- no acute distress Head- atraumatic Eyes- PERRL, EOMI ENT- oropharynx clear Neck- supple, no JVD Lungs- clear to auscultation Heart- regular rhythm Abdomen- normal bowel sounds, soft, nontender Extremities- no calf tenderness Neuro- alert, oriented x 3; PERRL, EOMI; no facial palsy Skin- warm & dry Assessment & Plan Dizziness Possible related to orthostatic vs positional vertigo vs dehydration Orthostatic BP noted during PT No focal neuro deficit CT and MRI of the brain are negative Carotid Doppler showed no hemodynamically significant stenosis seen within the carotid arteries. Case discussed with Neuro and OK to discharge home Resolved Ambulatory Dysfunction Continue PT/OT fall precaution OK to PT to return home with 24hour family support. Will give a script for a standard walker and script given for outpatient PT Low Vit B12 B12 level 173 Continue B12 supplement Hypertension Continue lisinopril 2.5 mg COPD Continue home oxygen with ambulation Hypothyroidism TSH WNL Continue levothyroxine Tobacco abuse Counseling on smoking cessation DVT Px on lovenox subq CODE STATUS FULL CODE Disposition Follow up with your PCP Dr. Rowell on 12/08 @ 11:45 AM Will discharge home today Continue outpatient PT Fall precaution Consultants: Neurology Current Inpatient Medications: Current Inpatient Medications Medications (Trade) Dose Ordered Sig/Codey Route Start Time Stop Time Status Last Admin Dose Admin Enoxaparin Sodium (Lovenox Inj) 30 mg Q24H SQ 12/02/16 22:00 01/01/17 21:59 12/03/16 21:16 30 MG Acetaminophen (Tylenol Tab) 650 mg Q4H PRN PO 12/02/16 20:45 01/01/17 20:44 Ondansetron HCl (Zofran Inj) 4 mg Q6H PRN IV 12/02/16 20:45 01/01/17 20:44 Tramadol HCl (Ultram Tab) 25 mg Q6H PRN PO 12/02/16 20:45 01/01/17 20:44 Aspirin (Ecotrin Tab) 81 mg QAM PO 12/03/16 08:00 01/02/17 08:59 12/04/16 08:52 81 MG Citalopram Hydrobromide (celeXA TAB) 20 mg QPM PO 12/02/16 21:00 01/01/17 20:59 12/03/16 21:17 20 MG Docusate Sodium (coLACE CAP) 200 mg HS PO 12/02/16 21:00 01/01/17 20:59 12/03/16 21:17 200 MG Fexofenadine HCl (Sarai Tab) 180 mg BID PO 12/02/16 21:00 01/01/17 20:59 12/04/16 08:51 180 MG Levothyroxine Sodium (Synthroid Tab) 25 mcg DAILYBB PO 12/03/16 06:30 01/02/17 06:59 12/04/16 06:06 25 MCG Lisinopril (Zestril Tab) 2.5 mg QAM PO 12/03/16 08:00 01/02/17 08:59 12/04/16 08:51 2.5 MG Lorazepam (Ativan Tab) 0.5 mg HS PRN PO 12/02/16 20:45 01/01/17 20:44 12/03/16 22:09 0.5 MG Polyethylene (Miralax Powder Packet) 17 gm DAILY PO 12/03/16 08:00 01/02/17 08:59 12/04/16 08:51 17 GM Simvastatin (Zocor Tab) 10 mg DAILY PO 12/03/16 08:00 01/02/17 08:59 12/04/16 08:52 10 MG Tiotropium [place] (Spiriva Handihaler Inhaler) 1 puff DAILY INH 12/03/16 08:00 01/02/17 08:59 12/04/16 08:49 1 PUFF Miscellaneous Information (Order Awaiting Action) 1 ea QS N/A 12/03/16 00:00 01/02/17 00:00 Multivitamins/ Minerals (Multivitamin W/ Minerals Tab) 1 tab BID PO 12/02/16 21:00 01/01/17 20:59 12/04/16 08:51 1 TAB Lactobacillus Acidophilus (Floranex Tab) 1 tab DAILY PO 12/03/16 08:00 01/02/17 08:59 12/03/16 09:21 1 TAB Meclizine HCl (Antivert Tab) 12.5 mg Q6H PRN PO 12/02/16 20:45 01/01/17 20:44 Miscellaneous (Iv Fluids Completed) 1 ea PRN PRN N/A 12/02/16 21:00 12/02/17 20:59 Cyanocobalamin (Vitamin B-12 Tab) 1,000 mcg QAM PO 12/04/16 08:00 01/03/17 07:59 12/04/16 08:50 1,000 MCG
[2016-12-04] MEDS ORDERED: CYAN1TAB18 PO (13:13)
[2016-12-04 13:21] VITALS: BP 144/87; PULSE 69; TEMP 36.5; O2SAT 98
--- NOTE | 2016-12-04 13:25 | Discharge Instructions ---
Discharge Instructions Date of Service Dec 04, 2016. Admission Reason for Admission: Vertigo Discharge Discharge Diagnosis / Problem: Dizziness, Low vitamin B12, Tobacco abuse Discharge Goals Goal(s): Decrease discomfort, Improve function, Improve disease control Activity Recommendations Activity Limitations: resume your previous activity (as tolerated) . Instructions / Follow-Up Instructions / Follow-Up Discharge home Follow up with Dr. Rowell on 12/08 @ 11:45 AM Continue outpatient Physical therapy (script given ) Fall precaution Do not get up too quick when standing up Use your walker to ambulate (script given for walker) Counseling on smoking cessation Current Hospital Diet Patient's current hospital diet: AHA Diet (Heart Healthy) Discharge Diet Recommended Diet: AHA Diet (Heart Healthy) Pending Studies Studies pending at discharge: no Medical Emergencies . Who to Call and When: Medical Emergencies: If at any time you feel your situation is an emergency, please call 911 immediately. . Non-Emergent Contact Non-Emergency issues call your: Primary Care Provider Call Non-Emergent contact if: you have any medication questions . . "Provider Documentation" section prepared by Gretta Grimm. . VTE Core Measure Inpt VTE Proph given/why not?: Enoxaparin (Lovenox)SQ
--- NOTE | 2016-12-04 16:46 | PROGRESS NOTE ---
DATE: 12/04/2016 SUBJECTIVE: Wendy looks like she did yesterday neurologically, but she feels nonspecifically ill, may have a little cough but her vital signs are normal and otherwise she looks pretty well. Hallpike maneuvers again induced no vertigo, but do induce neck pain which is a chronic issue with her. She has been up, ambulating and feels that her gait is up to normal and frankly on exam today, I do not see any nystagmus, I cannot induce any by head movements nor can I induce any subjective vertgo and there is no cerebellar dysmetria. Reflexes are symmetrical and normal. Toes are down. Strength is good and sensation is intact. So, at this point with an imaging study that shows no new infarctions and only some chronic white matter disease and an exam is normal. I do not think neurology needs to do much more and frankly I think she could be discharged back to her home care, if indeed the internal medicine service finds nothing else from atheir point of view at this point. If she is still in the hospital, I will check back tomorrow, but I see no reason to hold her again based on her neurologic condition. MARLEN
--- NOTE | 2016-12-05 17:45 | Discharge Summary ---
Discharge Summary Date of Service Dec 05, 2016. Discharge Summary Admission Date: Dec 02, 2016 at 20:22 Discharge Date: Dec 04, 2016 Discharge Disposition: Home Principal Diagnosis: Dizziness Secondary Diagnoses/Problems: Low vitamin B12 Tobacco abuse Ambulatory dysfunction HTN COPD Tobacco abuse Procedures: BILATERAL CAROTID DOPPLER STUDY HISTORY: Dizziness COMPARISON: None. TECHNIQUE: Real-time, grayscale, and color Doppler sonography of the carotid arteries was performed. Imaging reviewed in the transverse and longitudinal planes. All measurements were calculated based on NASCET criteria. FINDINGS: Antegrade flow is seen in the bilateral vertebral arteries. Mild calcified plaque seen within the bilateral carotid bifurcations. The peak systolic velocity within the right ICA is 72 cm/s. The right systolic ratio is 1.4. The peak systolic velocity within the left ICA is 65 cm/s. The left systolic ratio is 1.1. IMPRESSION: No hemodynamically significant stenosis seen within the carotid arteries. Electronically signed by: Edgar Saez M.D. 12/03/2016 8:07 PM Dictated Date/Time: 12/03/2016 8:06 PM BRAIN WITHOUT CONTRAST HISTORY: 80 years-old Female acute vertigo and dizziness with concern for acute stroke. COMPARISON: CT head of same day TECHNIQUE: Multiplanar multisequence MRI of the brain was obtained without contrast. 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 There is no restricted diffusion to suggest acute infarction. The midline structures including the corpus callosum, brainstem, optic chiasm, pituitary and pineal gland are unremarkable. There is no cerebellar tonsillar herniation. 2 mm anterolisthesis of C2 on C3 is likely on a degenerative basis secondary to underlying severe facet arthropathy. There is facet bony fusion on the right at this level. Multilevel uncovertebral spurring and intervertebral disc space narrowing is present along with facet arthrosis. There is moderate cerebral atrophy with ex vacuo ventriculomegaly. Moderate to extensive degree of patchy and confluent T2 prolongation involves the subcortical, deep and periventricular white matter of the cerebral hemispheres bilaterally compatible with chronic microvascular ischemic changes. No acute intracranial hemorrhage, midline shift, intracranial mass or abnormal extra-axial collections. Major flow voids at the level of the skull base appear patent. Orbits are symmetric. Mastoid air cells are clear. There is minimal ethmoid sinus disease. IMPRESSION: 1. No acute intracranial abnormality. Negative for hemorrhage or acute infarction. 2. Background atrophy with moderate to extensive chronic microvascular ischemic changes. The above report was generated using voice recognition software. It may contain grammatical, syntax or spelling errors. Electronically signed by: Giovanni Dumont M.D. 12/02/2016 4:42 PM Dictated Date/Time: 12/02/2016 4:38 PM CHEST ONE VIEW PORTABLE CLINICAL HISTORY: Atypical chest pain COMPARISON STUDY: 09/26/2015 FINDINGS: The heart is normal in size. The patient remains hyperinflated. Underlying emphysema is suspected. There is minor blunting of the lateral costophrenic angles.[ There is no focal pulmonary consolidation IMPRESSION: Emphysema. No evidence of focal pulmonary consolidation Electronically signed by: Nathan Barroso M.D. 12/02/2016 11:49 AM Dictated Date/Time: 12/02/2016 11:[address] HEAD WITHOUT CONTRAST (CT) CLINICAL HISTORY: dizziness COMPARISON STUDY: 11/21/2014 TECHNIQUE: Axial CT of the brain is performed from the vertex to the skull base. IV contrast was not administered for this examination. A dose lowering technique was utilized adhering to the principles of ALARA. CT DOSE: 614.27 mGy.cm FINDINGS: No intra or extra-axial mass lesions are visualized. There is no CT evidence of acute cortical infarction. There is no evidence of midline shift. There is no acute hemorrhage. No calvarial fractures are visualized. There are patchy white matter hypodensities likely on a small vessel basis. There is no evidence of pathologic ventricular dilatation. There is no evidence of acute sinusitis IMPRESSION: No acute intracranial findings Electronically signed by: Nathan Barroso M.D. 12/02/2016 12:00 PM Dictated Date/Time: 12/02/2016 11:58 AM Consultations: Neurology Medication Reconciliation New Medications: Cyanocobalamin (B-12) 1,000 Mcg Tab 1 TAB PO DAILY for 30 Days Continued Medications: Aspirin (Aspirin 81) 81 Mg Tab 1 TAB PO QAM Biotin (Biotin) 1 Mg Cap 1 PO QAM Citalopram (Citalopram Hydrobromide) 20 Mg Tab 20 MG PO QPM Docusate Sodium (Colace) 100 Mg Cap 2 CAP PO HS Fexofenadine HCl (Mucinex Allergy) 180 Mg Tab 1 TAB PO BID Fluticasone Furoate-Vilanterol (Breo Ellipta) 1 Inh Inh 1 PUFF PO DAILY Home O2 Therapy (Oxygen) Gas 2 LITERS NA HS Levothyroxine Sodium (Levothyroxine Sodium) 25 Mcg Tab 1 TAB PO DAILY for 30 Days, #30 TAB 5 Refills Lisinopril (Lisinopril) 2.5 Mg Tab 2.5 MG PO QAM Lorazepam (Lorazepam) 0.5 Mg Tab 0.5 MG PO HS Multiple Minerals W/ Vitamins (Calcium Citrate +) 1 Tab Tab 250 MG PO BID Polyethylene Glycol 3350 (Miralax) 1 Pow Pow 1 DOSE PO DAILY Probiotic Product (Tailor Made Oil) 1 Cap Cap 1 CAPSULES PO QAM Saline (Saline Nasal [place]) 0.65 % Spr 2 SPRAYS INH Q4 PRN for to keep sinuses clear Simvastatin (Zocor) 10 Mg Tab 1 TAB PO DAILY for 90 Days, #90 TAB 3 Refills Tiotropium [place] (Spiriva Handihaler) 30 Puff/540 Mcg Aerp 1 CAP INH DAILY for 30 Days, #30 CAP 3 Refills Admission Information HPI (per Admitting provider): CHIEF COMPLAINT: Dizziness. HISTORY OF PRESENT ILLNESS: History obtained from the patient, records, daughter. Medical history significant for chronic respiratory failure 2 to secondary to COPD on home O2, ongoing tobacco abuse, hypertension, hyperlipidemia, hypothyroidism. 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 Over the last few months, the patient has not been well, nonspecific symptoms, not feeling as per outpatient records, a lot of stress , but her moods are stable. Family does not think she is depressed; patient thinks she may be. Over the last 2 months, worsening of symptoms. Poor appetite as per family. Patient frustrated that she is "not able to do as much as she is able to do in the past". Denies exertional shortness of breath. She saw her PCP last month. Lyme screen, Vitamin D, ESR, HEATHER were all normal. This morning, patient woke up with dizziness described as lightheadedness, however, worse with head motion. No chest pain, no shortness of breath. Brought to the Emergency Room. Workup unremarkable. Upon standing up, patient had trouble walking - "walking like a drunk". Physical Exam (per Admitting): VITAL SIGNS: Blood pressure was noted to be 104/60, pulse rate 85, RR 20, temperature 36.4, sats 92 on room air. GENERAL: Noted to be anxious, in no respiratory distress. SKIN: Normal color. HEENT: [place] palpebral conjunctivae. Dry mucosa. Nasal cannula in place. NECK: No JVD, supple. CHEST: Clear to auscultation. HEART: Regular rate and rhythm ABDOMEN: Soft. EXTREMITIES: No edema, no tenderness. NEUROLOGIC: No gross focality. Gait and stance not assessed. Note of some rest/intention tremors. Hospital Course Dizziness Possible related to orthostatic vs positional vertigo vs dehydration Orthostatic BP noted during PT No focal neuro deficit CT and MRI of the brain are negative Carotid Doppler showed no hemodynamically significant stenosis seen within the carotid arteries. Case discussed with Neuro and OK to discharge home Resolved Ambulatory Dysfunction Continue PT/OT fall precaution OK to PT to return home with 24hour family support. Will give a script for a standard walker and script given for outpatient PT Low Vit B12 B12 level 173 Continue B12 supplement Hypertension Continue lisinopril 2.5 mg COPD Continue home oxygen with ambulation Hypothyroidism TSH WNL Continue levothyroxine Tobacco abuse Counseling on smoking cessation DVT Px on lovenox subq CODE STATUS FULL CODE Disposition Follow up with your PCP Dr. Rowell on 12/08 @ 11:45 AM Will discharge home today Continue outpatient PT Fall precaution Total time spent on discharge = 35 minutes This includes examination of the patient, discharge planning, medication reconciliation, and communication with other providers. Discharge Instructions Discharge Instructions Date of Service Dec 04, 2016. Admission Reason for Admission: Vertigo Discharge Discharge Diagnosis / Problem: Dizziness, Low vitamin B12, Tobacco abuse Discharge Goals Goal(s): Decrease discomfort, Improve function, Improve disease control Activity Recommendations Activity Limitations: resume your previous activity (as tolerated) . Instructions / Follow-Up Instructions / Follow-Up Discharge home Follow up with Dr. Rowell on 12/08 @ 11:45 AM Continue outpatient Physical therapy (script given ) Fall precaution Do not get up too quick when standing up Use your walker to ambulate (script given for walker) Counseling on smoking cessation Current Hospital Diet Patient's current hospital diet: AHA Diet (Heart Healthy) Discharge Diet Recommended Diet: AHA Diet (Heart Healthy) Pending Studies Studies pending at discharge: no Medical Emergencies . Who to Call and When: Medical Emergencies: If at any time you feel your situation is an emergency, please call 911 immediately. . Non-Emergent Contact Non-Emergency issues call your: Primary Care Provider Call Non-Emergent contact if: you have any medication questions . . "Provider Documentation" section prepared by Gretta Grimm. . VTE Core Measure Inpt VTE Proph given/why not?: Enoxaparin (Lovenox)SQ Additional Copies To Nichole Rowell M.D. (MEDICAL) Dakota Deleon M.D.
== END 2016-12-04 14:00 | disposition home or self-care (01) ==
LOC: C.EDB 10:36 → C.MS4W 20:22 → ENRESERV 20:36
PROVIDERS: ADMIT Internal Medicine; ATTEND Internal Medicine
DX: R42 Dizziness and giddiness (principal); I65.23 Occlusion and stenosis of bilateral carotid arteries; E53.8 Deficiency of other specified B group vitamins; R26.81 Unsteadiness on feet; E86.0 Dehydration; J44.9 Chronic obstructive pulmonary disease, unspecified; F17.200 Nicotine dependence, unspecified, uncomplicated; R64 Cachexia; J96.10 Chronic respiratory failure, unspecified whether with hypoxia or hypercapnia; I10 Essential (primary) hypertension; E78.5 Hyperlipidemia, unspecified; E03.9 Hypothyroidism, unspecified; F17.210 Nicotine dependence, cigarettes, uncomplicated; G93.49 Other encephalopathy; Z79.82 Long term (current) use of aspirin; Z79.899 Other long term (current) drug therapy; Z99.81 Dependence on supplemental oxygen